=== PATIENT | female | born 1970 | race Caucasian/White ===

== ENCOUNTER 2023-05-04 11:49 | Emergency (ER) | payer BC, SELFPAY ==
[2023-05-04] VITALS (13 sets, daily range): BP systolic 100–131; BP diastolic 69–91; PULSE 61–87; RESP 20; TEMP 36.8; O2SAT 93–99; BMI 19.8
--- NOTE | 2023-05-04 12:08 | XR_ITS ---
FINAL REPORT CLINICAL HISTORY: fall, pain FINDINGS: 2 views of the right hip were obtained. There is no acute fracture or dislocation. There are mild degenerative changes. There he has an 11 mm probable loose body adjacent to the femoral neck. IMPRESSION: No acute bony abnormality. Reviewed, Interpreted and Dictated by Sergio Alvarenga III, MD Transcribed by Ronal Silva Authenticated and . [facility]
--- NOTE | 2023-05-04 12:08 | XR_ITS ---
FINAL REPORT CLINICAL HISTORY: fall, pain FINDINGS: 3 views of the right knee were obtained. There is an impacted fracture of the lateral tibial plateau with 2 mm of impaction of the fracture fragment. A moderate joint effusion is present. There is no dislocation. IMPRESSION: Impaction fracture of the lateral tibial plateau with moderate joint effusion. Reviewed, Interpreted and Dictated by Sergio Alvarenga III, MD Transcribed by Ronal Silva Authenticated and . [facility]
--- NOTE | 2023-05-04 12:08 | XR_ITS ---
FINAL REPORT CLINICAL HISTORY: fall, pain FINDINGS: Two views of the right tibia-fibula were obtained. There is an impacted fracture of the lateral tibial plateau with 2 mm of impaction of the fracture fragment. A moderate joint effusion is present. There is no dislocation. IMPRESSION: Impaction fracture of the lateral tibial plateau. Reviewed, Interpreted and Dictated by Sergio Alvarenga III, MD Transcribed by Ronal Silva Authenticated and . [facility]
--- NOTE | 2023-05-04 12:08 | XR_ITS ---
FINAL REPORT CLINICAL HISTORY: fall, pain FINDINGS: Multiple views of the right femur were obtained. There is no acute fracture or dislocation. Visualized joint spaces are intact. There is no acute soft tissue abnormality. IMPRESSION: No acute process. Reviewed, Interpreted and Dictated by Sergio Alvarenga III, MD Transcribed by Ronal Silva Authenticated and [facility]
--- NOTE | 2023-05-04 12:09 | HMH.EDGENADL ---
Discharge Plan Disposition Patient Disposition: Home, Self-Care Condition: Good Prescriptions Prescriptions: New oxycodone 5 mg tablet 5 mg PO Q8H PRN (Reason: pain) Qty: 12 0RF Referrals Follow up/Referrals: Iván Andrew DO [Staff Physician] - See instructions Tab Castillo [Primary Care Provider] - See instructions Activity Restrictions/Add. Instructions Additional Instructions/Restrictions: You were evaluated in the emergency department today. Please excelsior picker your prescription for pain medication and take as needed for severe pain. You may also take Tylenol and ibuprofen. Not bear weight on your right lower extremity. Keep your splint on, clean, and dry. Return to the emergency department for new or worsening symptoms, such as significant worsening of pain, numbness, tingling, or other concerns. Please contact Dr. Andrew's office to arrange follow up. Clinical Impressions Clinical Impression: Fall, Acute pain of right knee, Fracture of tibial plateau Instructions Patient Instructions: DI for Tibial Plateau Fracture Discharge ED Provider: Keisha Cueva General Adult HPI <Keisha Cueva DO - Last Filed: 05/05/23 07:23> General Chief complaint: Fall Stated complaint: AO 04/29 FELL OUT CHAIR ON RIGHT SIDE Time Seen by Provider: 05/04/23 12:01 Mode of Arrival: Ambulatory Source of Information: Patient Limitations: No Limitations Description of Symptoms (Recalled from ER Triage Doc. by RN): pt to ed c/o fall on . pt is c/o right side and right knee pain. pt states she is unable to bear weight on her right knee today. pt reports mild swelling. pt denies LOC. History of Present Illness HPI narrative: This patient is a 52-year-old female with a history of epilepsy presenting to the emergency department for evaluation with concern for right knee pain. Patient reports that she was on a chair cleaning her clemente when she fell off of the chair, landing on her right knee on the ground on . She has been ambulatory since, but the more she walks and puts weight on it the more painful it has become. She also notes that she is developing some bruising to her foot, though her foot is not painful and she did not injure her foot. She denies any head injury, loss of consciousness, chest wall pain, back pain, abdominal pain, or other concerns. No numbness or tingling noted. She does not take any blood thinners. Related Data Previous Rx's Medication Instructions Recorded oxycodone 5 mg tablet 5 mg PO Q8H PRN pain #12 tabs 05/04/23 Allergies Allergy/AdvReac Type Severity Reaction Status Date / Time Penicillins Allergy Verified 05/04/23 12:27 Sulfa (Sulfonamide Allergy Verified 05/04/23 12:27 Antibiotics) PFS <Keisha Cueva DO - Last Filed: 05/05/23 07:23> [facility] Disclaimer: The information contained in this section may have been updated after the patient was seen, as this information can be updated by other users. Social History (Updated 05/04/23 @ 17:43 by Gustabo Hearn MD) Smoking Status: Never smoker alcohol intake: never current occupational status: unemployed Travel in the last 8 weeks: None <Keisha Cueva DO - Last Filed: 05/05/23 07:23> ROS Obtained: Yes All systems reviewed & no additional complaints except as documented Physical Exam <Keisha Cueva DO - Last Filed: 05/05/23 07:23> General General appearance: alert and in no apparent distress Head Head exam: atraumatic and normocephalic Eye Eye exam: Present normal appearance, PERRL and EOMI ENT ENT exam: Present normal exam, normal oropharynx, mucous membranes moist and normal external ear exam Neck Neck exam: Present normal inspection, full ROM and trachea midline; Absent tenderness Chest Chest inspection: Present normal inspection and symmetric chest wall rise; Absent tenderness Respiratory Respiratory exam: Present normal lung sounds bilaterally; Absent respiratory distress, wheezes, stridor or accessory
--- NOTE | 2023-05-04 14:15 | PC.NURSE ---
radiology contacted about results, they are reading now
--- NOTE | 2023-05-04 15:00 | PC.NURSE ---
Awaiting a call back from Dr. Andrew
--- NOTE | 2023-05-04 15:25 | PC.NURSE ---
SPEAKING WITH DR DIEHL
--- NOTE | 2023-05-04 15:26 | CT_ITS ---
PROCEDURE INFORMATION: Exam: CT Right Lower Extremity With Contrast, Knee Exam date and time: 05/04/2023 4:47 PM Age: 52 years old Clinical indication: Injury or trauma; Other: FX; Additional info: Tibial plateau FX TECHNIQUE: Imaging protocol: CT of the right lower extremity with intravenous contrast was performed. Exam focused on the knee. Radiation optimization: All CT scans at this facility use at least one of these dose optimization techniques: automated exposure control; mA and/or kV adjustment per patient size (includes targeted exams where dose is matched to clinical indication); or iterative reconstruction. Contrast material: ISOVUE; Contrast volume: 100 ml; Contrast route: IV; REPORTING DATA: Count of CT and Cardiac NM exams in prior 12 months: This patient has received 0 known CTs and 0 known cardiac nuclear medicine studies in the 12 months prior to the current study. COMPARISON: CR XR KNEE RT 3V 05/04/2023 12:42 PM FINDINGS: Bones/joints: Depressed fracture of the posterior lateral tibial plateau 3.1 mm with hemarthrosis. Soft tissues: Normal. IMPRESSION: Depressed fracture of the posterior lateral tibial plateau 3.1 mm with hemarthrosis.
== END 2023-05-04 17:53 | disposition home or self-care (01) ==
PROVIDERS: Emergency Provider Emergency Medicine; PCP Family Medicine
DX: M25.561 Pain in right knee; G40.909 Epilepsy, unspecified, not intractable, without status epilepticus; W07.XXXA Fall from chair, initial encounter; S82.121A Displaced fracture of lateral condyle of right tibia, initial encounter for closed fracture
CPT/HCPCS: 29505; 73502; 73552; 73562; 73590; 73701; 99284; Q9967

== ENCOUNTER 2023-05-18 14:49 | Outpatient (RCR) | payer BC, SELFPAY | END 2023-05-18 16:30 | disposition home or self-care (01) | LOC: PT 14:49 | PROVIDERS: Visit Provider Orthopaedic Surgery | DX: S82.141A Displaced bicondylar fracture of right tibia, initial encounter for closed fracture (principal) | CPT/HCPCS: 97760 ==

== ENCOUNTER 2023-06-22 14:33 | Outpatient (CLI) | payer BC, SELFPAY ==
--- NOTE | 2023-06-22 14:41 | XR_ITS ---
FINAL REPORT CLINICAL HISTORY: Rt Knee Pain pt states tibial plateau fx Apr, 2023 COMPARISON: 05/04/2023 FINDINGS: Right knee Three views were obtained. There is a chronic lateral tibial plateau fracture with evidence of interval healing. Small joint effusion is partially improved. IMPRESSION: Healing fracture as above. Reviewed, Interpreted and Dictated by Sergio Alvarenga III, MD Transcribed by Mavis Quarles Authenticated and . [facility]
== END 2023-06-22 23:59 ==
LOC: RAD 14:34
PROVIDERS: PCP Family Medicine; Visit Provider Orthopaedic Surgery
DX: M25.561 Pain in right knee (principal)
CPT/HCPCS: 73562